=== PATIENT | male | born 1955 | race Caucasian/White ===

== ENCOUNTER 2017-07-07 08:43 | Emergency (ER) | payer BC ==
[2017-07-07 09:00] VITALS: BMI 32.6
[2017-07-07] MEDS ORDERED: LOPRESSOR INJ 5 MG AMP IVP STA (09:06)
[2017-07-07] MEDS ORDERED: ASPIRIN PO ONE (09:06)
--- NOTE | 2017-07-07 09:09 | DR.GENAD ---
HPI - PCP Primary Care Physician: jordin - Complaint/Symptoms Chief Complaint:: patient stated for the past 30 minutes he has been feeling weird in his chest and his heart rate has been high. - Nurses notes reviewed Nurses Notes Review: Yes - Source History Provided: Patient - Mode of Arrival Mode of Arrival: Ambulatory - Timing Onset of Chief Complaint: 07/07/17 Came on: Suddenly - Duration Duration: Since Onset How lon Duration: Hours - Severity Severity: Moderate PMH - PMH Past Medical History: Yes Past Medical History: Diabetes, Hypertension Past Medical History Comment: heart cath 2002--all ok per pt Past Surgical History: Yes Surgical History: Unknown - Family History History of Family Medical Conditions: Yes Family Medical History: Diabetes Mellitus, Hypertension - Social History Does patient currently use any type of tobacco product: No Have you used tobacco products in the last 12 months: No Does any household member use tobacco: No Alcohol Use: None Do you use any recreational Drugs:: No Lives With: Family Lives Where: Home - infectious screening In the last 2 months have you had wt loss of >10#?: NO Have you had fever, night sweats or hemotysis?: No Have you traveled outside the country in the last 6 months?: No Isolation: Standard ROS - Review of Systems Constitutional: Malaise, Fatigue Eyes: No Symptoms Reported ENTM: No Symptoms Reported Respiratoy: Short of Breath Cardiovascular: Palpitations Gastrointestinal/Abdominal: No Symptoms Reported Genitourinary: No Symptoms Reported Neurological: Dizziness Musculoskeletal: No Symptoms Reported Integumentary: No Symptoms Reported Hematologic/Lymphatic: No Symptoms Reported Endocrine: No Symptoms Reported Psychiatric: No Symptoms Reported All Other Systems: Reviewed and Negative PE - Vital Signs Vitals: Temperature 98.7 F Pulse Rate 148 Respiratory Rate 18 Blood Pressure 166/114 O2 Sat by Pulse Oximetry 99 - General Limitations: No Limitations General Appearance: Alert, In No Apparent Distress - Head Head Exam: Normal Inspection, Normocephalic - Eyes Eye exam: Normal Appearance - ENT ENT Exam: Normal Exam Throat Exam: Normal Inspection - Neck Neck Exam: Normal Inspection, Full ROM, Trachea Midline. negative: Thyromegaly - Chest Chest Inspection: Normal Inspection, Symmetric Chest Wall Rise - Respiratory Respiratory Exam: Normal Lung Sounds Bilat. negative: Accessory Muscle Use, Chest Wall Tenderness, Respiratory Distress, Stridor Respiratory Exam: Bilateral Clear to Auscultation - Cardiovascular Cardiovascular Exam: Tachycardia. negative: Systolic Murmur, Diastolic Murmur, Rubs, Gallop, Clicks - Abdominal Exam Abdominal Exam: Normal Inspection, Normal Bowel Sounds, Soft - Extremities Extremities Exam: Normal Inspection, Normal Capillary Refill. negative: Edema - Neurologic Neurological Exam: Alert, Oriented X3 - Psychiatric Psychiatric Exam: Normal Affect, Normal Mood - Skin Skin Exam: Warm, Dry, Intact Course - Reevaluation 1st: Resolved (HR went to 70's, BP normalized. Pt feels better. Wants to go home. Pt counseled re: glucose. Pt offered admission but he wants to go home. Feels well now. ) ROR - Labs Reviewed Laboratory Results Reviewed?: Yes (reviewed w/pt and family) Result Diagrams: 07/07/17 09:11 07/07/17 09:11 Laboratory: WBC 10.4 X10^3/uL (3.6-10.0) H 07/07/17 09:11 RBC 5.42 X10^6/uL (4.7-6.0) 07/07/17 09:11 Hgb 16.9 g/dL (13.5-18.0) 07/07/17 09:11 Hct 48.0 % (42.0-54.0) 07/07/17 09:11 MCV 88.6 fL (80.0-100.0) 07/07/17 09:11 MCH 31.1 pg (27.0-34.0) 07/07/17 09:11 MCHC 35.2 g/dL (33.0-35.0) H 07/07/17 09:11 RDW 13.3 % (11.6-16.5) 07/07/17 09:11 Plt Count 226 X10^3/uL (150.0-450.0) 07/07/17 09:11 MPV 9.3 fL (7.4-11.0) 07/07/17 09:11 Neut % (Auto) 73.8 % (42.0-75.0) 07/07/17 09:11 Lymph % (Auto) 18.1 % (21.0-51.0) L 07/07/17 09:11 [place] % (Auto) 6.9 % (0.0-13.0) 07/07/17 09:11 Eos % (Auto) 0.9 % (0.9-2.9) 07/07/17 09:11 Baso % (Auto) 0.3 % (0.2-1.0) 07/07/17 09:11 Neut # (Auto) 7.6 x10^3/uL (2.2-4.8) H 07/07/17 09:11 Lymph # (Auto) 1.9 X10^3/uL (1.3-2.9) 07/07/17 09:11 [place] # (Auto) 0.7 x10^3/uL (0.3-0.8) 07/07/17 09:11 Eos # (Auto) 0.1 x10^3/uL (0.0-0.2) 07/07/17 09:11 Baso # (Auto) 0.0 X10^3/uL (0.0-0.1) 07/07/17 09:11 Absolute Nucleated RBC 0.1 /100WBC 07/07/17 09:11 INR Target Range - 07/07/17 09:11 INR 0.94 (0.8-1.3) 07/07/17 09:11 APTT 28.4 SECONDS (22.9-36.5) 07/07/17 09:11 PTT Comment - 07/07/17 09:11 D-Dimer 106 ng/mL (0-400) 07/07/17 09:11 Sodium 138 mmol/L (136-145) 07/07/17 09:11 Corrected Sodium 144 mmol/L (136-145) 07/07/17 09:11 Potassium 3.7 mmol/L (3.5-5.1) 07/07/17 09:11 Chloride 101 mmol/L (98-107) 07/07/17 09:11 Carbon Dioxide 24.8 mmol/L (21-32) 07/07/17 09:11 BUN 19 mg/dL (7-18) H 07/07/17 09:11 Creatinine 0.97 mg/dL (0.70-1.30) 07/07/17 09:11 Est GFR (MDRD) Af Amer > 60 (>60) 07/07/17 09:11 Est GFR (MDRD) Non-Af > 60 (>60) 07/07/17 09:11 Glucose 336 mg/dL (65-99) H 07/07/17 09:11 Calcium 9.4 mg/dL (8.5-10.1) 07/07/17 09:11 Corrected Calcium TNP 07/07/17 09:11 Magnesium 1.8 mg/dL (1.7-2.9) 07/07/17 09:11 Total Bilirubin 0.70 mg/dL (0.2-1.0) 07/07/17 09:11 AST 17 Units/L (15-37) 07/07/17 09:11 ALT 41 Units/L (12-78) 07/07/17 09:11 Alkaline Phosphatase 74 Units/L (46-116) 07/07/17 09:11 Creatine Kinase 127 Units/L (39-308) 07/07/17 09:11 CK-MB (CK-2) 1.4 ng/mL (0-4.0) 07/07/17 09:11 CK/CKMB % Calc 1.1 % (<4) 07/07/17 09:11 Troponin I < 0.02 ng/mL (0-1.5) 07/07/17 09:11 Total Protein 8.7 g/dL (6.4-8.2) H 07/07/17 09:11 Albumin 4.5 g/dL (3.4-5.0) 07/07/17 09:11 Globulin 4.2 g/dL (2.5-4.5) 07/07/17 09:11 Albumin/Globulin Ratio 1.1 Ratio (1.1-2.1) 07/07/17 09:11 Specimen Type Clean catch urine 07/07/17:27 Urine Color Pale yellow (YELLOW) 07/07/17: Urine Appearance Clear (CLEAR) 07/07/17: Urine pH 6.5 (5.0 - 8.0) 07/07/17: Ur Specific [place] 1.010 (1.000-1.030) 07/07/17: Urine Protein Negative (NEGATIVE) 07/07/17: Urine Glucose (UA) 4+ (NEGATIVE) 07/07/17: Urine Ketones Negative (NEGATIVE) 07/07/17: Urine Occult Blood Negative (NEGATIVE) 04/21/18 09:27 Urine Nitrite Negative (NEGATIVE) 07/07/17 09:27 Urine Bilirubin Negative (NEGATIVE) 07/07/17 09:27 Urine Urobilinogen Normal (NORMAL) 07/07/17 09:27 Ur Leukocyte Esterase Negative (NEGATIVE) 07/07/17 09:27 - XRAY XRAY Interpreted by: Radiologist XRAY Findings: nonacute - EKG Compared to prior EKG Dated: 07/07/17 (sinus tach, nothing else acute) - Diagnosis Discharge Problem: Tachycardia, Uncontrolled diabetes mellitus - Discharge Plan Disposition: HOME, SELF-CARE Condition: Stable Prescriptions: Metoprolol Tartrate [Lopressor Tab 50 mg] 50 mg PO BID #30 tab - Follow ups/Referrals Follow ups/Referrals: Michael CAPPS [Primary Care Provider] - 3 days - Instructions Instructions: Chest Pain Observation
[2017-07-07] MEDS ORDERED: ASPIRIN 81 MG CHEWTAB ONE (09:14)
[2017-07-07] MEDS ORDERED: LOPRESSOR INJ 5 MG AMP ONE (09:14)
[2017-07-07 09:27] VITALS: BP 166/114
[2017-07-07 09:28] LABS: EOSINOPHILS # (AUTO) 0.1 x10^3/uL (0.0-0.2); LYMPHOCYTES # (AUTO) 1.9 X10^3/uL (1.3-2.9); MEAN PLATELET VOLUME 9.3 fL (7.4-11.0); MONOCYTES # (AUTO) 0.7 x10^3/uL (0.3-0.8)
[2017-07-07 09:33] LABS: BASOPHILS % (AUTO) 0.3 % (0.2-1.0); EOSINOPHILS % (AUTO) 0.9 % (0.9-2.9); HEMOGLOBIN 16.9 g/dL (13.5-18.0); LYMPHOCYTES % (AUTO) 18.1 % (21.0-51.0); MEAN CORPUSCULAR HEMOGLOBIN 31.1 pg (27.0-34.0); MEAN CORPUSCULAR HGB CONC 35.2 g/dL (33.0-35.0); MEAN CORPUSCULAR VOLUME 88.6 fL (80.0-100.0); MONOCYTES % (AUTO) 6.9 % (0.0-13.0); NEUTROPHILS # (AUTO) 7.6 x10^3/uL (2.2-4.8); NEUTROPHILS % (AUTO) 73.8 % (42.0-75.0); PLATELET COUNT 226 X10^3/uL (150.0-450.0); RED BLOOD COUNT 5.42 X10^6/uL (4.7-6.0); RED CELL DISTRIBUTION WIDTH 13.3 % (11.6-16.5); WHITE BLOOD COUNT 10.4 X10^3/uL (3.6-10.0)
[2017-07-07 09:49] LABS: BLOOD UREA NITROGEN 19 mg/dL (7-18); CALCIUM 9.4 mg/dL (8.5-10.1); CARBON DIOXIDE 24.8 mmol/L (21-32); CHLORIDE 101 mmol/L (98-107); COR NA(FOR HYPERGLY) 144 mmol/L (136-145); CREATININE 0.97 mg/dL (0.70-1.30); SODIUM 138 mmol/L (136-145); TROPONIN I < 0.02 ng/mL (0-1.5); eGFR BLACK RACES > 60 (>60); eGFR NON BLACK RACES > 60 (>60)
--- NOTE | 2017-07-07 10:02 | RAD ---
Examination: AP chest History: Elevated heart rate Findings: Normal cardiac size with clear lungs and pleural spaces. Impression: No acute or significant findings. Reported By:
[2017-07-07 10:03] LABS: ALANINE AMINOTRANSFERASE 41 Units/L (12-78); ALBUMIN 4.5 g/dL (3.4-5.0); ALKALINE PHOSPHATASE 74 Units/L (46-116); ASPARTATE AMINO TRANSFERASE 17 Units/L (15-37); CKMB % 1.1 % (<4); CREATINE KINASE 127 Units/L (39-308); CREATINE KINASE MB 1.4 ng/mL (0-4.0); MAGNESIUM 1.8 mg/dL (1.7-2.9); TOTAL PROTEIN 8.7 g/dL (6.4-8.2)
[2017-07-07 10:12] LABS: APPEARANCE,URINE CLEAR (CLEAR); COLOR,URINE PALE YELLOW (YELLOW); PH,URINE 6.5 (5.0 - 8.0); PROTEIN,URINE NEGATIVE (NEGATIVE)
[2017-07-07 10:13] LABS: BILIRUBIN,URINE NEGATIVE (NEGATIVE); BLOOD/HEMOGLOBIN,URINE NEGATIVE (NEGATIVE); GLUCOSE, URINE 4+ (NEGATIVE); KETONES,URINE NEGATIVE (NEGATIVE); LEUKOCYTE ESTERASE ,URINE NEGATIVE (NEGATIVE); NITRITES,URINE NEGATIVE (NEGATIVE); UROBILINOGEN,URINE NORMAL (NORMAL)
== END 2017-07-07 10:51 | disposition home or self-care (01) ==
LOC: ER 08:52
DX: R00.0 Tachycardia, unspecified (principal); E11.65 Type 2 diabetes mellitus with hyperglycemia; R94.31 Abnormal electrocardiogram [ECG] [EKG]
CPT/HCPCS: 36415; 71045; 80053; 81003; 82550; 82553; 83735; 84484; 85025; 85378; 85610; 85730; 93005; 93010; 96365; 96374; 99283; A4222; J3490

== ENCOUNTER 2017-07-30 22:26 | Emergency (ER) | payer BC ==
[2017-07-30 22:35] VITALS: BMI 31.9
--- NOTE | 2017-07-30 22:50 | DR.GENAD ---
HPI - PCP Primary Care Physician: GÉNESIS - HPI Comment HPI Comment: SYMTOMS INTTERMITTENT. FARIDEH WOKE PATIENT UP WITH SOB AND PALPITATION. HE IS HAVING ORTHOPNES. - Complaint/Symptoms Chief Complaint Doctors Comments: HEART POUNDING, SOB AND CHEST PAIN TIMES 4 DAYS. Chief Complaint:: PT STATES" I COULD FEEL MY HEART POUNDING IN MY CHEST THIS HAPPENED TO ME A FEW WEEKS AGO I TOOK A METEPROLOL AT HOME" - Nurses notes reviewed Nurses Notes Review: Yes - Source History Provided: Patient - Mode of Arrival Mode of Arrival: Ambulatory - Timing Onset of Chief Complaint: 07/30/17 Came on: Suddenly - Duration Duration: Intermittent Duration: Days - Severity Severity: Moderate PMH - PMH Past Medical History: Yes Past Medical History: Diabetes, Hypertension Past Surgical History: Yes Surgical History: Ortho Surgery Past Surgical History Comment: HERNIA - Family History History of Family Medical Conditions: Yes Family Medical History: Diabetes Mellitus, Hypertension - Social History Does patient currently use any type of tobacco product: Yes Type of Tobacco Use: Smokeless Does any household member use tobacco: No Alcohol Use: None Do you use any recreational Drugs:: No Lives With: Family Lives Where: Home - infectious screening In the last 2 months have you had wt loss of >10#?: NO Have you had fever, night sweats or hemotysis?: No Have you traveled outside the country in the last 6 months?: No Isolation: Standard ROS - Review of Systems Constitutional: No Symptoms Reported Eyes: No Symptoms Reported ENTM: No Symptoms Reported Respiratoy: Orthopnea, Short of Breath, Other (PND) Cardiovascular: Chest Pain, Palpitations Gastrointestinal/Abdominal: No Symptoms Reported Genitourinary: No Symptoms Reported Neurological: Weakness, Dizziness Musculoskeletal: No Symptoms Reported Integumentary: No Symptoms Reported Hematologic/Lymphatic: No Symptoms Reported Endocrine: No Symptoms Reported All Other Systems: Reviewed and Negative PE - Vital Signs Vitals: Temperature 98 F Pulse Rate [Apical] 57 Pulse Rate 135 Respiratory Rate 16 Blood Pressure [Right Arm] 134/78 Blood Pressure 182/108 O2 Sat by Pulse Oximetry 92 - General Limitations: No Limitations General Appearance: Alert - Head Head Exam: Normal Inspection - Eyes Eye exam: Normal Appearance - ENT ENT Exam: Normal External Ear Exam External Ear Exam: Normal External Inspection TM/Canal Exam: Bilateral Normal Nose Exam: Normal Nose Exam Mouth Exam: Normal Inspection Throat Exam: Normal Inspection - Neck Neck Exam: Trachea Midline - Chest Chest Inspection: Symmetric Chest Wall Rise - Respiratory Respiratory Exam: Normal Lung Sounds Bilat Respiratory Exam: Bilateral Clear to Auscultation - Cardiovascular Cardiovascular Exam: Regular Rate, Normal Rhythm, Normal Heart Sounds - Abdominal Exam Abdominal Exam: Normal Bowel Sounds, Soft. negative: Tenderness - Extremities Extremities Exam: Normal Inspection - Back Back Exam: Normal Inspection - Neurologic Neurological Exam: Alert, Oriented X3 - Psychiatric Psychiatric Exam: Anxious - Skin Skin Exam: Normal Color [facility] - Additional Information Additional Information Obtained From: Family - Differential Diagnosis Differential Diagnosis: CHF, PNEUMONIA, PE, AR, A FIB Course - Treatment Treatment: SEE ORDERS. - Education/Counseling Education/Counseling: Patient, Family, Education Educated On: Diagnosis, Needs for Follow Up ROR - Labs Reviewed Laboratory Results Reviewed?: Yes Result Diagrams: 07/30/17 22:48 07/30/17 22:48 Laboratory: WBC 7.1 X10^3/uL (3.6-10.0) 07/30/17 22:48 RBC 4.97 X10^6/uL (4.7-6.0) 07/30/17 22:48 Hgb 15.3 g/dL (13.5-18.0) 07/30/17 22:48 Hct 43.4 % (42.0-54.0) 07/30/17 22:48 MCV 87.3 fL (80.0-100.0) 07/30/17 22:48 MCH 30.8 pg (27.0-34.0) 07/30/17 22:48 MCHC 35.3 g/dL (33.0-35.0) H 07/30/17 22:48 RDW 13.0 % (11.6-16.5) 07/30/17 22:48 Plt Count 204 X10^3/uL (150.0-450.0) 07/30/17 22:48 MPV 8.8 fL (7.4-11.0) 07/30/17 22:48 Neut % (Auto) 46.3 % (42.0-75.0) 07/30/17 22:48 Lymph % (Auto) 37.5 % (21.0-51.0) 07/30/17 22:48 [place] % (Auto) 9.8 % (0.0-13.0) 07/30/17 22:48 Eos % (Auto) 5.9 % (0.9-2.9) H 07/30/17 22:48 Baso % (Auto) 0.5 % (0.2-1.0) 07/30/17 22:48 Neut # (Auto) 3.3 x10^3/uL (2.2-4.8) 07/30/17 22:48 Lymph # (Auto) 2.7 X10^3/uL (1.3-2.9) 07/30/17 22:48 [place] # (Auto) 0.7 x10^3/uL (0.3-0.8) 07/30/17 22:48 Eos # (Auto) 0.4 x10^3/uL (0.0-0.2) H 07/30/17 22:48 Baso # (Auto) 0.0 X10^3/uL (0.0-0.1) 07/30/17 22:48 Absolute Nucleated RBC 0.0 /100WBC 07/30/17 22:48 INR Target Range - 07/30/17 22:48 INR 0.93 (0.8-1.3) 07/30/17 22:48 APTT 29.1 SECONDS (22.9-36.5) 07/30/17 22:48 PTT Comment - 07/30/17 22:48 Sodium 138 mmol/L (136-145) 07/30/17 22:48 Corrected Sodium 139 mmol/L (136-145) 07/30/17 22:48 Potassium 3.7 mmol/L (3.5-5.1) 07/30/17 22:48 Chloride 101 mmol/L (98-107) 07/30/17 22:48 Carbon Dioxide 26.0 mmol/L (21-32) 07/30/17 22:48 BUN 22 mg/dL (7-18) H 07/30/17 22:48 Creatinine 0.95 mg/dL (0.70-1.30) 07/30/17 22:48 Est GFR (MDRD) Af Amer > 60 (>60) 07/30/17 22:48 Est GFR (MDRD) Non-Af > 60 (>60) 07/30/17 22:48 Glucose 145 mg/dL (65-99) H 07/30/17 22:48 Calcium 8.6 mg/dL (8.5-10.1) 07/30/17 22:48 Corrected Calcium TNP 07/30/17 22:48 Magnesium 2.0 mg/dL (1.7-2.9) 07/30/17 22:48 Total Bilirubin 0.40 mg/dL (0.2-1.0) 07/30/17 22:48 AST 17 Units/L (15-37) 07/30/17 22:48 ALT 38 Units/L (12-78) 07/30/17 22:48 Alkaline Phosphatase 69 Units/L (46-116) 07/30/17 22:48 Creatine Kinase 173 Units/L (39-308) 07/30/17 22:48 CK-MB (CK-2) 1.4 ng/mL (0-4.0) 07/30/17 22:48 CK/CKMB % Calc 0.8 % (<4) 07/30/17 22:48 Troponin I < 0.02 ng/mL (0-1.5) 07/30/17 22:48 Total Protein 8.3 g/dL (6.4-8.2) H 07/30/17 22:48 Albumin 4.4 g/dL (3.4-5.0) 07/30/17 22:48 Globulin 3.9 g/dL (2.5-4.5) 07/30/17 22:48 Albumin/Globulin Ratio 1.1 Ratio (1.1-2.1) 07/30/17 22:48 - XRAY XRAY Interpreted by: Radiologist XRAY Findings: REPORT DISCUSS WITH PATIENT. - EKG Rhythm: NSR (EKG NOTED) - Diagnosis Discharge Problem: Tachycardia - Discharge Plan Disposition: 01 HOME, SELF-CARE Condition: Stable - Follow ups/Referrals Follow ups/Referrals: Michael CAPPS [Primary Care Provider] - 07/31/17 - Instructions Instructions: Sinus Tachycardia Additional Instructions: RETURN TO ED IF WOPRSE.
[2017-07-30 23:01] LABS: BASOPHILS % (AUTO) 0.5 % (0.2-1.0); EOSINOPHILS # (AUTO) 0.4 x10^3/uL (0.0-0.2); EOSINOPHILS % (AUTO) 5.9 % (0.9-2.9); HEMATOCRIT 43.4 % (42.0-54.0); HEMOGLOBIN 15.3 g/dL (13.5-18.0); LYMPHOCYTES # (AUTO) 2.7 X10^3/uL (1.3-2.9); LYMPHOCYTES % (AUTO) 37.5 % (21.0-51.0); MEAN CORPUSCULAR HEMOGLOBIN 30.8 pg (27.0-34.0); MEAN CORPUSCULAR HGB CONC 35.3 g/dL (33.0-35.0); MEAN CORPUSCULAR VOLUME 87.3 fL (80.0-100.0); MEAN PLATELET VOLUME 8.8 fL (7.4-11.0); MONOCYTES # (AUTO) 0.7 x10^3/uL (0.3-0.8); MONOCYTES % (AUTO) 9.8 % (0.0-13.0); NEUTROPHILS # (AUTO) 3.3 x10^3/uL (2.2-4.8); NEUTROPHILS % (AUTO) 46.3 % (42.0-75.0); PLATELET COUNT 204 X10^3/uL (150.0-450.0); RED BLOOD COUNT 4.97 X10^6/uL (4.7-6.0); WHITE BLOOD COUNT 7.1 X10^3/uL (3.6-10.0)
--- NOTE | 2017-07-30 23:06 | RAD ---
HISTORY: Heart palpitations. Study: Portable chest. Comparison: Chest x-ray dated July 07, 2017. Findings: The trachea is midline. The cardiac silhouette is unremarkable. No obvious focal consolidation, ple ural effusion, or pneumothorax. The bony thorax is unremarkable. IMPRESSION: No acute cardiopulmonary disease. Reported By:
[2017-07-30 23:15] LABS: ALANINE AMINOTRANSFERASE 38 Units/L (12-78); ALBUMIN 4.4 g/dL (3.4-5.0); ALKALINE PHOSPHATASE 69 Units/L (46-116); ASPARTATE AMINO TRANSFERASE 17 Units/L (15-37); BLOOD UREA NITROGEN 22 mg/dL (7-18); CALCIUM 8.6 mg/dL (8.5-10.1); CHLORIDE 101 mmol/L (98-107); COR NA(FOR HYPERGLY) 139 mmol/L (136-145); CREATININE 0.95 mg/dL (0.70-1.30); SODIUM 138 mmol/L (136-145); TOTAL PROTEIN 8.3 g/dL (6.4-8.2); eGFR BLACK RACES > 60 (>60); eGFR NON BLACK RACES > 60 (>60)
[2017-07-30 23:28] LABS: CKMB % 0.8 % (<4); CREATINE KINASE 173 Units/L (39-308); CREATINE KINASE MB 1.4 ng/mL (0-4.0); TROPONIN I < 0.02 ng/mL (0-1.5)
[2017-07-30 23:35] VITALS: BP 134/78
== END 2017-07-31 | disposition home or self-care (01) ==
LOC: ER 22:37
DX: R00.0 Tachycardia, unspecified (principal); R94.31 Abnormal electrocardiogram [ECG] [EKG]
CPT/HCPCS: 36415; 71045; 80053; 82550; 82553; 83735; 84484; 85025; 85610; 85730; 93005; 93010; 99283; 99285; A4222